=== PATIENT | male | born 1985 | race Caucasian/White ===

== ENCOUNTER 2019-07-16 23:29 | Emergency (ER) | payer BC ==
[~2019-07-16] VITALS: Ht 182.9 cm; Wt 97.7 kg
[2019-07-17] MEDS ORDERED: LIDOcaine 1% W/epiNEPHrine 1:200,000 10ml vial IJ ONE (00:20)
[2019-07-17 01:22] VITALS: BP 133/76
== END 2019-07-17 01:24 | disposition home or self-care (01) ==
LOC: ER 23:29
DX: L02.212 Cutaneous abscess of back [any part, except buttock and flank] (principal); Z88.6 Allergy status to analgesic agent
CPT/HCPCS: 10060; 99282